=== PATIENT | male | born 1985 | race Two or more races ===

== ENCOUNTER → 2017-07-19 | Emergency (ER) | payer BC ==
[~2017-07-19] VITALS: Ht 182.9 cm; Wt 89.8 kg
[~2017-07-19] MED LIST: ACETAMINOPHEN 325 MG TABLET PO ONE; ACETAMINOPHEN ES 500 MG TABLET ONE
[2017-07-19 00:17] VITALS: BP 142/88
== END | disposition home or self-care (01) ==
LOC: ER 00:07
DX: S62.636A Displaced fracture of distal phalanx of right little finger, initial encounter for closed fracture (principal); W18.00XA Striking against unspecified object with subsequent fall, initial encounter; Y93.66 Activity, soccer; Y92.89 Other specified places as the place of occurrence of the external cause; Y99.8 Other external cause status
CPT/HCPCS: 29130; 99283; A4606; Z7610